=== PATIENT | female | born 1970 | race Caucasian/White ===

== ENCOUNTER → 2018-05-08 | Outpatient (CLI) | payer OTHER ==
[~2018-05-08] MED LIST: AMOX500 PO; ATEN50 PO; CLON.1; CLON.2 PO; CLON.3 PO; CLON.5; DIPH50; IBUP600 PO; Klonopin PO; Klonopin1 MG PO; LAMO25; OLAN20; OLAN7.5 PO; OXCA300; SERT50; Tenormin25 MG PO; ZIPR80; Zoloft100 MG PO; Zyprexa15 MG PO; [UNRECOGNIZED DRUG - OTHER]
[2018-05-08 19:07] LABS: U Amphetamine Screen Not Detected; U Barbituate Screen Not Detected; U Benzodiazapine Screen Not Detected; U Buprenorphine Screen Not Detected; U Cannabinoids Screen Not Detected; U Cocaine Screen Not Detected; U Methadone Screen Not Detected; U Methamphetamine Screen Not Detected; U Opiates Screen Not Detected; U Oxycodone Screen Not Detected; U Phencyclidine Screen Not Detected; U Propoxyphene Screen Not Detected
== END ==
LOC: LAB 16:58 → LAB SHORT 16:58
PROVIDERS: Psychiatry & Neurology Psychiatry
DX: Z51.81 Encounter for therapeutic drug level monitoring (principal); Z79.899 Other long term (current) drug therapy

== ENCOUNTER 2023-03-09 09:32 | Emergency (ER) | payer MEDICARE, OTHER ==
[~2023-03-09] VITALS: Ht 167.6 cm; Wt 63.5 kg
[2023-03-09 09:50] VITALS: BP 146/94
[2023-03-09] MEDS ORDERED: TOPI50 PO (10:19)
[2023-03-09] MEDS ORDERED: ABILIFY MYCITE15 M2 PO (10:19)
== END 2023-03-09 10:20 | disposition home or self-care (01) ==
LOC: ER 09:32
DX: Z76.0 Encounter for issue of repeat prescription (principal); I10 Essential (primary) hypertension; Z88.8 Allergy status to other drugs, medicaments and biological substances; Z79.899 Other long term (current) drug therapy
CPT/HCPCS: 99281

== ENCOUNTER 2023-10-25 13:09 | Observation (INO) | payer MEDICARE ==
[~2023-10-25] VITALS: Ht 167.6 cm; Wt 47.6 kg
[~2023-10-25 13:09] MED LIST changes: +ABILIFY MYCITE15 M2 PO; +TOPI50 PO
[2023-10-25 14:58] LABS: BASOPHILS ABSOLUTE AUTO 0.06 K/mm3 (0.00-0.23); BASOPHILS PERCENT AUTO 1 % (0-2); EOSINOPHILS ABSOLUTE AUTO 0.05 K/mm3 (0.00-0.68); EOSINOPHILS PERCENT AUTO 1 % (0-6); Hematocrit 46.8 % (33.0-51.0); Hemoglobin 15.6 g/dL (11.5-16.0); IMMATURE GRAN ABSOLUTE AUTO 0.02 K/mm3 (0.00-0.10); IMMATURE GRAN PERCENT AUTO 0 % (0-1); LYMPHOCYTES ABSOLUTE AUTO 2.47 K/mm3 (0.84-5.20); LYMPHOCYTES PERCENT AUTO 27 % (21-46); MONOCYTES ABSOLUTE AUTO 0.53 K/mm3 (0.16-1.47); MONOCYTES PERCENT AUTO 6 % (4-13); Mean Corpuscular HGB 30.1 pg (26.0-34.0); Mean Corpuscular HGB Conc 33.3 g/dL (31.5-36.5); Mean Corpuscular Volume 90 fL (80-100); Mean Platelet Volume 12.7 fL (9.1-12.4); NEUTROPHILS PERCENT AUTO 67 % (41-73); Platelet Count 220 K/mm3 (150-400); RDW Coefficient Variation 12.2 % (11.7-14.2); RDW Standard Deviation 40.5 fL (35.1-46.3); Red Blood Cell Count 5.18 M/mm3 (3.80-5.20); White Blood Cell Count 9.33 K/mm3 (4.00-11.30)
[2023-10-25 15:29] LABS: Acetaminophen, Random <2.0 ug/mL (10.0-30.0); Alanine Aminotransfer (ALT/SGP 22 U/L (12-78); Albumin, Blood 4.7 g/dL (3.4-5.0); Albumin/Globulin Ratio 1.3 (0.8-1.8); Alk Phos 67 U/L (50-136); Anion Gap 12 mmol/L (6-16); Aspartate Aminotrans (AST/SGOT 23 U/L (12-37); Bilirubin, Total 1.6 mg/dL (0.1-1.0); Blood Urea Nitrogen 20 mg/dL (8-24); Bun/Creatinine Ratio 26.2 (12.0-20.0); CO2, Blood 21 mmol/L (21-32); Calcium, Blood 10.7 mg/dL (8.5-10.1); Chloride, Blood 111 mmol/L (98-108); Creatinine, Blood 0.76 mg/dL (0.40-1.00); Globulin, Blood 3.7 g/dL (2.2-4.0); Glomerular Filtration Rate 95 (60-); Glucose, Blood 90 mg/dL (70-99); Potassium, Blood 7.1 mmol/L (3.5-5.5); Sodium, Blood 144 mmol/L (136-145); Total Protein, Blood 8.4 g/dL (6.4-8.2)
[2023-10-25 15:30] LABS: Ethanol (Alcohol), Blood, Med <3 mg/dL; Salicylate <1.7 mg/dL (2.8-20.0)
[2023-10-25 22:47] LABS: Source, Urine Clean Catch
[2023-10-25 22:53] LABS: Bilirubin, Urine Neg (Neg); Blood, Urine 2+ (Neg); Glucose Qualitative, Urine Neg (Neg); Ketones, Urine 4+ (Neg); Leukocyte Esterase, Urine 3+ (Neg); Nitrite, Urine Neg (Neg); Protein, Urine 2+ (Neg); Urobilinogen, Urine NORM (Normal)
[2023-10-25 23:35] LABS: Influenza A, PCR NEGATIVE (NEGATIVE); Influenza B, PCR NEGATIVE (NEGATIVE); Resp Syncytial Virus, PCR NEGATIVE (NEGATIVE); SARS-Cov-2 (COVID-19) PCR, MMC NEGATIVE (NEGATIVE)
[2023-10-25 23:35] LABS: Appearance, Urine Hazy (Clear); Color, Urine Yellow (P-Yellow)
[2023-10-25 23:36] LABS: Bacteria Mod /hpf; Mucus Light (0-Heavy); Red Blood Cells, Urine 0-2 /hpf (0-2); Squamous Epithelial Cells Few /hpf (Few)
[2023-10-25 23:45] LABS: U Amphetamine Screen Not Detected; U Barbituate Screen Not Detected; U Benzodiazapine Screen Not Detected; U Buprenorphine Screen Not Detected; U Cannabinoids Screen Not Detected; U Cocaine Screen Not Detected; U Methadone Screen Not Detected; U Methamphetamine Screen Not Detected; U Opiates Screen Not Detected; U Oxycodone Screen Not Detected; U Phencyclidine Screen Not Detected
[2023-10-27 18:49] VITALS: BP 108/76
== END 2023-10-27 19:30 | disposition home or self-care (01) ==
LOC: ER 13:09 → EDSEX 13:10 → EOR 13:10 → ER 17:51 → EOR 17:51
PROVIDERS: Physician Assistant; ADMIT Student in an Organized Health Care Education/Training Program
DX: F20.0 Paranoid schizophrenia (principal); I10 Essential (primary) hypertension; Z88.8 Allergy status to other drugs, medicaments and biological substances; Z79.899 Other long term (current) drug therapy; Z20.822 Contact with and (suspected) exposure to COVID-19
CPT/HCPCS: 0241U; 36415; 80053; 81001; 81025; 84132; 85025; 87086; 93005; 93010; 99285-25; A9270; G0378; G0480

== ENCOUNTER 2024-12-22 07:48 | Emergency (ER) | payer MEDICARE, OTHER ==
[~2024-12-22] VITALS: Ht 170.2 cm; Wt 54.4 kg
[2024-12-22 08:03] VITALS: BP 133/77
[2024-12-22] MEDS ORDERED: OLAN10 PO ×2 (10:37→11:05)
== END 2024-12-22 11:07 | disposition home or self-care (01) ==
LOC: ER 07:48
DX: Z76.0 Encounter for issue of repeat prescription (principal); Z86.59 Personal history of other mental and behavioral disorders; I10 Essential (primary) hypertension; Z79.899 Other long term (current) drug therapy; Z88.8 Allergy status to other drugs, medicaments and biological substances
CPT/HCPCS: 99281